=== PATIENT | male | born 1960 | race Caucasian/White ===

== ENCOUNTER → 2017-09-16 | Outpatient (REF) | payer OTHER ==
[2017-09-18 15:11] LABS: QUANTIFERON GOLD TB Negative (Negative); TB Test (QFT) Antigen 0.04 IU/mL (.); TB Test (QFT) Antigen Minus Ni 0.02 IU/mL (.); TB Test (QFT) Mitogen >10.00 IU/mL (.); TB Test (QFT) Nil 0.02 IU/mL (.)
== END ==
LOC: M LAB REF 10:45
DX: L40.9 Psoriasis, unspecified (principal); Z51.81 Encounter for therapeutic drug level monitoring
CPT/HCPCS: 86480

== ENCOUNTER → 2018-02-03 | Outpatient (CLI) | payer OTHER | LOC: M WUC 09:00 | DX: M25.474 Effusion, right foot (principal) | CPT/HCPCS: 73630 ==

== ENCOUNTER → 2018-06-01 | Outpatient (REF) | payer OTHER | LOC: M LAB REF 12:56 | DX: R19.7 Diarrhea, unspecified (principal) | CPT/HCPCS: 87086 ==

== ENCOUNTER → 2018-09-27 | Outpatient (REF) | payer OTHER ==
[~2018-09-27] MED LIST: ATOR1TAB21 PO; BETA0.0543 TOP; BUPR10TASR PO; CALC0.009 TOP; CALCIPOTRIENE TOP; COUM2.5T17 PO; DOCU10CA PO; ECHI400C2 PO; GLUC1CAP10 PO; GLUCTAB6 PO; NAPR-855 PO; OMEP40CA2 PO; OXYGEN; PERC5TAB12 PO; PRED20TA PO; SPIR1CAP INH; TRAM50TA2 PO; TYLE325T5 PO; VITA100066 PO; betamethasone cream TOP; coumadin PO
== END ==
LOC: M LAB REF 11:30
PROVIDERS: ATTEND Nurse Practitioner Adult Health
DX: Z79.899 Other long term (current) drug therapy (principal)

== ENCOUNTER → 2020-02-23 | Outpatient (REF) | payer OTHER ==
[~2020-02-23] MED LIST changes: -OMEP40CA2 PO; +OMEP40CA97 PO
[2020-04-19 17:36] LABS: HEPATITIS A ANTIBODY IGM NEGATIVE (NEGATIVE); HEPATITIS B CORE ANTIBODY IGM NEGATIVE (NEGATIVE); HEPATITIS B SURFACE ANTIGEN NEGATIVE (NEGATIVE); HEPATITIS C VIRUS ABY INDEX 0.2 INDEX (<0.8)
== END ==
LOC: M LAB REF 09:00
PROVIDERS: ATTEND Registered Nurse
DX: Z79.899 Other long term (current) drug therapy (principal)

== ENCOUNTER → 2020-05-02 | Outpatient (CLI) | payer OTHER ==
--- NOTE | 2020-05-02 12:48 | REP ---
INDICATION: PAIN COMPARISON: None. TECHNIQUE: AP, lateral, bilateral oblique views. FINDINGS: Generalized soft tissue swelling is appreciated along with age-related degenerative changes through the mid foot region. No evidence for acute fracture or dislocation. No subcutaneous emphysema or foreign body. IMPRESSION: Soft tissue swelling with generalized age-related degenerative changes <Electronically signed by Melchor Gutierrez > 05/02/20 [id number]
--- NOTE | 2020-05-02 12:50 | REP ---
INDICATION: PAIN COMPARISON: 02/03/2018 TECHNIQUE: AP, lateral, bilateral oblique views right foot. FINDINGS: Soft tissue swelling with generalized age-related changes noted. No acute fracture or dislocation. No subcutaneous emphysema or foreign body. The osseous structures are relatively stable when compared to 2018. IMPRESSION: Diffuse soft tissue swelling.. Age-related changes. <Electronically signed by Melchor Gutierrez > 05/02/20 [id number]
== END ==
LOC: M WUC 12:08
PROVIDERS: ATTEND Physician Assistant
DX: M25.571 Pain in right ankle and joints of right foot (principal)

== ENCOUNTER → 2020-06-04 | Outpatient (REF) | payer OTHER | LOC: M LAB REF 11:22 | PROVIDERS: ATTEND Nurse Practitioner Adult Health | DX: Z79.899 Other long term (current) drug therapy (principal); L40.9 Psoriasis, unspecified ==

== ENCOUNTER → 2020-07-31 | Outpatient (CLI) | payer OTHER ==
--- NOTE | 2020-07-31 10:23 | REP ---
INDICATION: TENDON TEAR RIGHT ANKLE. COMPARISON: Radiographs 05/02/2020. TECHNIQUE: Multiple sequences are obtained in the axial, coronal and sagittal planes. FINDINGS: The Achilles, anterior tibial, flexor hallucis longus, flexor digitorum longus and peroneal tendons are all intact without significant tenosynovitis. Significant increased signal is seen in the distal posterior tibial tendon on T2 weighted images consistent with high-grade partial tear. The anterior and posterior talofibular, calcaneofibular and deltoid ligaments appear intact. Plantar tendon appears intact. There is no plantar fasciitis. 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 No ganglion cyst is seen. There is normal amount of joint fluid. The cartilaginous surfaces are smooth. No osteochondral defect is seen at the tibiotalar joint. There is mild marrow edema/cystic change in the distal end of the fibula along the talofibular articulation. Mild subchondral marrow edema is seen along the calcaneocuboid joint, as well as in the inferior talus at the talocalcaneal joint, suggesting mild arthritic changes at these locations. Edema is seen in the medial aspect of the navicular bone, adjacent to the high-grade partial tear of the distal posterior tibial tendon. IMPRESSION: High-grade partial tear distal posterior tibial tendon with adjacent marrow edema in the navicular bone. 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 <Electronically signed by Angelo Kline > 07/31/20 [id number]
== END ==
LOC: M RAD 08:00
PROVIDERS: ATTEND Podiatrist
DX: S96.011A Strain of muscle and tendon of long flexor muscle of toe at ankle and foot level, right foot, initial encounter (principal); X58.XXXA Exposure to other specified factors, initial encounter; Y92.9 Unspecified place or not applicable

== ENCOUNTER → 2021-09-30 | Outpatient (REF) | payer OTHER ==
[~2021-09-30] MED LIST changes: +OMEP40CA4 PO; -OMEP40CA97 PO
== END ==
LOC: M LAB REF 12:48
PROVIDERS: ATTEND Nurse Practitioner Adult Health
DX: L40.9 Psoriasis, unspecified (principal); Z79.899 Other long term (current) drug therapy

== ENCOUNTER → 2022-10-07 | Outpatient (REF) | payer OTHER ==
[~2022-10-07] MED LIST changes: -GLUCTAB6 PO; +GLUCTAB7 PO
== END ==
LOC: M LAB REF 12:05
PROVIDERS: ATTEND Nurse Practitioner Adult Health
DX: L40.9 Psoriasis, unspecified (principal); Z79.899 Other long term (current) drug therapy

== ENCOUNTER → 2023-02-08 | Outpatient (REF) | payer OTHER | LOC: M LAB REF 12:24 | PROVIDERS: ATTEND Physician Assistant Medical | DX: N50.89 Other specified disorders of the male genital organs (principal) ==

== ENCOUNTER → 2023-02-09 | Outpatient (CLI) | payer OTHER | LOC: M WHC 10:17 | PROVIDERS: ATTEND Physician Assistant Medical | DX: N49.2 Inflammatory disorders of scrotum (principal); K44.9 Diaphragmatic hernia without obstruction or gangrene; N43.3 Hydrocele, unspecified ==

== ENCOUNTER → 2024-03-03 | Outpatient (REF) ==
[~2024-03-03] MED LIST changes: +CALC0.0017 TOP; -CALC0.009 TOP
== END ==
LOC: M PLAIMG 12:44
PROVIDERS: ATTEND Internal Medicine
DX: R52 Pain, unspecified (principal)

== ENCOUNTER 2025-03-28 08:46 | Day surgery (SDC) | payer MEDICARE, OTHER ==
[~2025-03-28] VITALS: Ht 165.1 cm; Wt 86.2 kg
[~2025-03-28 08:46] MED LIST changes: +ECHI400C19 PO; -ECHI400C2 PO; +HUMI40KI SC; +METH2.5T48 PO; +VITA100093 PO
[2025-03-28] MEDS ORDERED: LIDOCAINE 2% 100 MG/5 ML SDV (FOR ANES.) As Ordered ONE (09:35)
[2025-03-28 10:09] VITALS: TEMP 98
[2025-03-28 10:29] VITALS: BP 146/65; O2SAT 95
== END 2025-03-28 10:48 | disposition home or self-care (01) ==
LOC: M OPP 08:46
PROVIDERS: ATTEND Internal Medicine Gastroenterology
DX: Z12.11 Encounter for screening for malignant neoplasm of colon (principal); K56.699 Other intestinal obstruction unspecified as to partial versus complete obstruction; K57.30 Diverticulosis of large intestine without perforation or abscess without bleeding; K44.9 Diaphragmatic hernia without obstruction or gangrene; R12 Heartburn; G47.30 Sleep apnea, unspecified; Z79.891 Long term (current) use of opiate analgesic; Z79.899 Other long term (current) drug therapy; J44.9 Chronic obstructive pulmonary disease, unspecified; F17.210 Nicotine dependence, cigarettes, uncomplicated

== ENCOUNTER → 2025-04-03 | Outpatient (REF) | payer MEDICARE, OTHER | LOC: M LAB REF 11:52 | PROVIDERS: ATTEND Nurse Practitioner Adult Health | DX: Z79.899 Other long term (current) drug therapy (principal) ==